=== PATIENT | female | born 1990 | race Caucasian/White ===

== ENCOUNTER 2017-01-26 22:16 | Emergency (ER) | payer MEDICAID ==
[2017-01-26 23:25] LABS: BASOPHILS 0.2 % (0.0-2.0); EOSINOPHILS 1.9 % (0-7); HEMATOCRIT 31.9 % (36.0-48.0); HEMOGLOBIN 10.2 g/dL (12-16); IMMATURE GRANULOCYTES 0.2 % (0-5); LYMPHOCYTES 29.9 % (15-50); MCH 27.1 pg (26.0-34.0); MCV 84.6 fL (80.0-100.0); MEAN PLATELET VOLUME 10.3 fL (7.4-10.4); MONOCYTES 7.2 % (2-11); NEUTROPHILS 60.6 % (40-80); PLATELET COUNT 254 10x3/uL (130-400); RBC 3.77 10x6/uL (4.00-5.40); RDW 14.4 % (11.5-14.5); WBC 11.3 10x3/uL (4.8-10.8)
== END 2017-01-26 23:43 | disposition home or self-care (01) ==
LOC: D.ER 22:16
PROVIDERS: Nurse Practitioner Acute Care
DX: J20.9 Acute bronchitis, unspecified (principal); F17.200 Nicotine dependence, unspecified, uncomplicated

== ENCOUNTER 2020-01-30 18:20 | Emergency (ER) | payer SELFPAY ==
[~2020-01-30] VITALS: Ht 177.8 cm; Wt 81.8 kg
[2020-01-30 18:26] VITALS: Ht 177.8 cm; Wt 81.8 kg
[2020-01-30] MEDS ORDERED: ALBUTEROL SULF8.5 GM INH (19:52)
[2020-01-30] MEDS ORDERED: TAMIFLU75 MG PO (19:52)
[2020-01-30 20:19] VITALS: BP 125/68
== END 2020-01-30 20:19 | disposition home or self-care (01) ==
LOC: D.ER 18:20
DX: J11.1 Influenza due to unidentified influenza virus with other respiratory manifestations (principal); R06.2 Wheezing; J45.909 Unspecified asthma, uncomplicated; Z72.0 Tobacco use